=== PATIENT | female | born 1995 | race Caucasian/White ===

== ENCOUNTER 2021-02-09 17:13 | Emergency (ER) | payer OTHER, SELFPAY ==
[2021-02-09 17:22] VITALS: BP 119/69; PULSE 74; RESP 18; TEMP 36.7; O2SAT 100
--- NOTE | 2021-02-09 18:26 | ED.EAR ---
HPI - Ear Problem General Chief complaint: Ear Stated complaint: ear infection Source: patient and RN notes reviewed Mode of arrival: ambulatory History of Present Illness HPI Narrative: This is a 25-year-old female presented to urgent care with complaints of right ear pain and vertigo. According to patient it sounds like the ocean is in her ear she does have a history of ear infection according to patient she has had 3 ear infections this year with a ruptured TM. She has no other associated symptoms she does have some tenderness to the right ear with this assessment. The patient denies SOB, CP, palpitation, extremity numbness, lightheadedness, dizziness, constipation, diarrhea, chills, or fever. Denies any hearing loss or discharge. MD Complaint: ear pain Related Data Home Medications Medication Instructions Recorded Confirmed Medical Cannabis INHALATION 01/19/21 01/19/21 Allergies Allergy/AdvReac Type Severity Reaction Status Date / Time No Known Allergies Allergy Verified 02/09/21 17:26 Review of Systems Review of Systems: A 14 organ system Review of Systems was performed and pertinent positives included in the HPI, otherwise remaining ROS is negative. [facility] Past Medical History Medical History (Updated 02/09/21 @ 18:26 by SOLEDAD Matamoros) Anxiety Depression Surgical History Surgical History (Updated 01/19/21 @ 09:40 by Oanh Doyle CMA) History of wisdom tooth extraction Family History Family History (Updated 01/19/21 @ 09:42 by Oanh Doyle CMA) Grandparent FH: kidney cancer Heart disease Lymphoma Other Melanoma Social History Social History (Updated 01/19/21 @ 09:42 by Oanh Doyle CMA) Smoking status: Former smoker Alcohol intake: current Substance use: current Substance use type: marijuana Gender identity (if verbalized by the patient): Female Exam Narrative: GENERAL: This is a well-nourished, well-developed patient, in no apparent distress. HEAD: normocephalic, atraumatic. EYES: PERRL. Sclera clear/white. Vision is grossly intact. EARS: External ears normal, auditory canals clear and without drainage, TMs with erythematous without perforation. Hearing grossly intact. NOSE: External nose normal with no obvious nasal discharge, nares without redness, no rhinorrhea. THROAT: Mucous membranes moist, posterior pharynx clear. NECK: Neck supple, non-tender without lymphadenopathy, masses or thyromegaly. CARDIOVASCULAR: Regular rate and rhythm without murmurs, gallops, or rubs. RESPIRATORY: Clear to auscultation. Breath sounds equal bilaterally. No wheezes, rales, or rhonchi. GASTROINTESTINAL: Abdomen soft, non-tender, nondistended. Bowel sounds are active. No hepato-splenomegaly, or palpable masses. No guarding. SKIN: warm, intact with no suspicious lesions or rash, good texture and turgor. NEURO: awake, alert, and oriented to person, place and time. There were no obvious focal neurologic abnormalities. Steady gait EXTREMITIES: Normal range of motion. No edema. No calf tenderness. Negative Homans sign bilaterally. BACK: Nontender without deformity or crepitance. No flank tenderness. Course Course Emergency Course: Patient will discharge home with Augmentin twice daily x10 days Vital Signs Vital signs: Vital Signs Temperature 98.0 F 02/09/21 17:22 Pulse Rate 74 02/09/21 17:22 Respiratory Rate 18 02/09/21 17:22 Blood Pressure 119/69 02/09/21 17:22 Pulse Oximetry 100 02/09/21 17:22 Temperature 98.0 F 02/09/21 17:22 Pulse Rate 74 02/09/21 17:22 Respiratory Rate 18 02/09/21 17:22 Blood Pressure 119/69 02/09/21 17:22 Pulse Oximetry 100 02/09/21 17:22 Medical Decision Making Differential Diagnosis Differential Diagnosis: Otitis media, otitis externa, dental decay Vital Signs Vital Signs: Vital Signs Temperature 98.0 F 02/09/21 17:22 Pulse Rate 74 02/09/21 17:22 Respiratory Rate 18
== END 2021-02-09 18:33 | disposition home or self-care (01) ==
PROVIDERS: Emergency Provider Nurse Practitioner; PCP Emergency Medicine
DX: H66.004 Acute suppurative otitis media without spontaneous rupture of ear drum, recurrent, right ear (principal); Z87.891 Personal history of nicotine dependence
CPT/HCPCS: 99213; G0463

== ENCOUNTER → 2021-03-06 14:33 | Outpatient (REF) | payer OTHER, SELFPAY | LOC: ANHLAB 14:33 | PROVIDERS: PCP Emergency Medicine; Visit Provider Nurse Practitioner | DX: D49.2 Neoplasm of unspecified behavior of bone, soft tissue, and skin (principal) | CPT/HCPCS: 88305 ==